=== PATIENT | male | born 1945 | race Caucasian/White ===

== ENCOUNTER → 2018-09-16 10:54 | Outpatient (CLI) | payer MEDICARE, SELFPAY ==
--- NOTE | 2018-10-01 15:05 | P.HOLT.S_ITS ---
Remote Sensing Scientist Report Referral & Results Date Patient Seen: 09/16/18 Requesting provider: Edy Santana Indication: Dizziness Duration of monitoring (days): 7 Diary information: There are no patient diary entries and no patient triggered events to correlate with symptoms Data: Minimum heart rate was 40 beats per minute at 03:03 on 09/20/2018 Maximum sinus heart rate was 141 beats per minute at 15:00 on 09/18/2018 Maximum overall heart rate was 187 beats per minute at 11:55 on 09/19/2018 associated with a 25.2nd run of SVT Patient had less than 1% of identified beats as PACs or PVCs although there were 5-7 second runs of ventricular bigeminy and ventricular trigeminy Patient had multiple episodes of a supraventricular tachycardia that the computer identified his atrial fibrillation although I am unable to confirm that. This is either supraventricular tachycardia or a true atrial tachycardia with rates into the 180s. Lungs to these episodes lasted 1 minutes 9 seconds Impression: Supraventricular dysrhythmias above. Probably not atrial fibrillation however No other significant dysrhythmias identified
== END ==
PROVIDERS: Family Provider Family Medicine; PCP Family Medicine; Visit Provider Family Medicine
DX: R42 Dizziness and giddiness (principal)
CPT/HCPCS: 0296T; 0298T

== ENCOUNTER → 2018-09-25 17:04 | Outpatient (CLI) | payer MEDICARE, SELFPAY ==
[2018-09-25 17:34] LABS: Ammonia (NH3) < 9.0 umol/L (9-30)
[2018-09-25 18:32] LABS: TSH w/ Reflex to FT4 1.41 uIU/mL (0.47-4.68)
[2018-09-25 18:53] LABS: Vitamin B12 698 pg/mL (239-931)
== END ==
PROVIDERS: Family Provider Family Medicine; PCP Family Medicine; Visit Provider Family Medicine
DX: E16.2 Hypoglycemia, unspecified (principal); K51.90 Ulcerative colitis, unspecified, without complications; R26.9 Unspecified abnormalities of gait and mobility; R41.0 Disorientation, unspecified; R47.81 Slurred speech
CPT/HCPCS: 36415; 82140; 82607; 84443

== ENCOUNTER → 2018-09-26 14:06 | Outpatient (CLI) | payer MEDICARE, SELFPAY ==
--- NOTE | 2018-09-26 14:09 | DI.ECHO.S_ITS ---
[facility] +---------+ : : [address] : : : : [id number] : : : : Phone: [phone]+ Echocardiogram Report + + :Name: BABITA REIS Study Date: 09/26/2018 Height: 70 in : :[facility] Exam Location: IS Weight: 145 lb : : Gender: Male BSA: 1.8 m2 : :: 1945 Age: 73 yrs BP: 122/60 mmHg: :Reason For Study: Confusion : :Ordering Physician: Dr. Snow : :Esther Performed By: Carmen Hooper : :Referring: ROSALINE AL : + + Interpretation Summary Technically difficult study. Normal left ventricle size with ejection fraction 55-60%. Normal right ventricle and both atria. No significant valvular abnormality. Procedure: A two-dimensional transthoracic echocardiogram with color flow and Doppler was performed. The study quality was technically difficult. There is no prior echocardiogram noted for this patient. The patient was in normal sinus rhythm during the exam. Left Ventricle: The left ventricle is normal in size. Left ventricular wall thickness is normal. The ejection fraction is estimated to be 55-60%. There are no obvious focal wall motion abnormalities noted but poor endocardial definition reduces the sensitivity for the detection of such. Right Ventricle: The right ventricle is normal in size and function. Atria: Both atria are normal in size. The interatrial septum is intact with no evidence for an atrial septal defect. Mitral Valve: The mitral valve is normal in structure and function. There is trace mitral regurgitation. Aortic Valve: The aortic valve is trileaflet. The aortic valve opens well. No aortic regurgitation is present. Tricuspid Valve: The tricuspid valve is normal in structure and function. There is a trace or physiologic amount of tricuspid regurgitation. Pulmonary artery pressures cannot be estimated because of the lack of a measurable TR jet velocity. Pulmonic Valve: The pulmonic valve is not well seen, but is grossly normal. There is a trace or physiologic amount of pulmonic regurgitation. Great Vessels: The ascending aorta could not be visualized. The IVC is of normal diameter and collapses greater than 50% with a sniff. This suggests a low right atrial pressure of 3 mm Hg. Pericardium/ Pleura There is no pericardial effusion. There is no pleural effusion. MMode/2D Measurements & Calculations LVIDd: 4.9 cm LVOT diam: 2.0 cm LVIDs: 3.5 cm Ao Arch Diam (Prox Trans): 2.6 cm FS: 27.5 % IVSd: 0.87 cm LVPWd: 0.92 cm LV garcia. diameter/BSA (cm/m^2): 2.7 LV sys. diameter/BSA (cm/m^2): 1.9 LA A2 area: 11.8 cm2 RA long axis: 7.5 cm LA A4 area: 12.9 cm2 RA area: 7.5 cm2 LA length (vol): 4.8 cm RA vol: 6.3 ml LA vol: 26.9 ml RA : 3.5 ml/m2 LA vol index: 14.8 ml/m2 TAPSE: 1.9 cm Doppler Measurements & Calculations Ao V2 max: 116.1 cm/sec LVOT Max Dimitry: 78.9 cm/sec Ao V2 mean: 86.5 cm/sec LV V1 max P.5 mmHg Ao max P.4 mmHg LV V1 VTI: 14.4 cm Ao mean P.2 mmHg LUZ MARIA(I,D): 2.0 cm2 Ao V2 VTI: 23.0 cm LUZ MARIA(V,D): 2.1 cm2 sev ratio: 0.63 LUZ MARIA indexed to BSA (cm^2/m^2): 1.1 MV E max dimitry: 55.1 cm/sec PA V2 max: 48.3 cm/sec MV A max dimitry: 48.4 cm/sec PA V2 mean: 34.9 cm/sec MV E/A: 1.1 PA mean P.52 mmHg MV dec time: 0.18 sec PA pr(Accel): 7.5 mmHg SV(LVOT): 45.6 ml Electronically signed by: Denice De La O on Reading Physician:09/26/2018 04:42 PM
--- NOTE | 2018-09-26 14:09 | DI.US.S_ITS ---
PROCEDURE: US CAROTID DOPPLER BI INDICATIONS: CONFUSION TECHNIQUE: Color and pulse Doppler interrogation was performed of both carotid systems, with image documentation and velocity measurements. COMPARISON: None. FINDINGS: Stenosis calculations are based on SRU (Society of Radiologists in Ultrasound) criteria. Right side: Brachial blood pressure: 91/57 mm Hg. Common carotid artery peak systolic velocity: 114 cm/sec. Internal carotid artery peak systolic velocity: 91 cm/sec. Internal carotid artery end diastolic velocity: 39 cm/sec. External carotid artery peak systolic velocity: 115 cm/sec. ICA/CCA peak systolic ratio: 0.8. Mesa scale imaging description: Minimal intimal thickening. Percent internal carotid artery stenosis: Less than 50%. Vertebral artery: Flow direction is antegrade. Left side: Brachial blood pressure: 101/64 mm Hg. Common carotid artery peak systolic velocity: 128 cm/sec. Internal carotid artery peak systolic velocity: 90 cm/sec. Internal carotid artery end diastolic velocity: 28 cm/sec. External carotid artery peak systolic velocity: 120 cm/sec. ICA/CCA peak systolic ratio: 0.8. Mesa scale imaging description: Minimal intimal wall thickening. Percent internal carotid artery stenosis: Less than 50%. Vertebral artery: Flow direction is antegrade. IMPRESSION: Less than 50% bilateral internal carotid artery stenosis. Dictated by: Odell Arteaga [facility] Interpreted: Crescencio Bang MD on 09/26/2018 at 15:24 Approved by: Crescencio Bang M.D. on 09/26/2018 at 22:41
== END ==
PROVIDERS: Family Provider Family Medicine; PCP Family Medicine; Visit Provider Family Medicine
DX: R41.0 Disorientation, unspecified (principal); R47.81 Slurred speech; R26.9 Unspecified abnormalities of gait and mobility; I65.23 Occlusion and stenosis of bilateral carotid arteries
CPT/HCPCS: 93306; 93880

== ENCOUNTER → 2018-09-30 13:06 | Outpatient (CLI) | payer MEDICARE, SELFPAY ==
--- NOTE | 2018-09-30 13:08 | DI.MRI.S_ITS ---
PROCEDURE: MR STROKE Pre- and post-contrast brain MRI, non-contrast brain MR angiogram, pre- and postcontrast neck MR angiogram INDICATIONS: confusion weakness, fall TECHNIQUE: Brain: Noncontrast axial T1 spin echo, axial T2 fast spin echo, sagittal and axial FLAIR, coronal T2 fast spin echo, axial gradient echo, axial diffusion and ADC through the brain. After the administration of contrast, axial 3D VIBE of the cranial vasculature and brain. Brain MRA: Non-contrast 3-D time of flight MR angiogram, with multiple nholouu-dchbiittb-ljlmvwjfce (MIP) reformats performed. Neck MRA: Axial and sagittal TruFISP through the neck. Coronal dynamic MR angiogram during administration of contrast in the arterial and venous phases, with 3-dimenstional avdymsv-nbmesfszy-yygkgrjylr (MIP) reformats constructed from subtraction images. COMPARISON: [facility], , STROKE PROTOCOL, 09/09/2014, 16:13. FINDINGS: Image quality: Excellent. BRAIN: CSF spaces: Ventricles are normal in size and shape. Basal cisterns are patent. No extra-axial fluid collections. Brain: No intracranial bleeds or mass effects. Mesa-white matter interface is normal. Diffusion weighted images show no acute ischemic insults. Brainstem appears normal. Normal intravascular flow voids are present. No abnormal intracranial enhancement. Skull and face: Calvarial marrow signal is normal. Orbits appear normal. Note is made of bilateral lens replacements. Sinuses: Minimal to mild mucosal thickening can be seen throughout the paranasal sinuses. No abnormal mass air cell fluid can be seen. BRAIN MR ANGIOGRAM: Anterior circulation: Intracranial internal carotid arteries are normal in size and enhancement. The flow within the paired anterior cerebral arteries is normal and symmetric. The flow within the middle cerebral arteries is normal and symmetric. The anterior communicating artery is seen. No stenoses, occlusions, or aneurysms. Posterior circulation: There is mild narrowing seen of the distal right vertebral artery, which is similar to November 02 and felt most likely be congenital in nature. Vertebral arteries otherwise demonstrate an unremarkable appearance. They join to form a normal appearing basilar artery. The flow within the posterior cerebral arteries is normal and symmetric. No stenoses, occlusions, or aneurysms. NECK MR ANGIOGRAM: Carotids: Great vessels demonstrate a conventional anatomy as they arise from the aortic arch. The origins of the common carotid arteries appear patent. The calibers and courses of both common carotid arteries are normal. The bifurcation regions appear normal bilaterally. The internal carotid arteries demonstrate normal course and caliber. Posterior circulation: The origins of the vertebral arteries appear patent. More superior portions of both vertebral arteries demonstrate normal course and caliber, and join to form a normal appearing basilar artery. Miscellaneous: Subclavian arteries appear patent. Pre-contrast images through the neck show no soft tissue abnormalities. IMPRESSION: BRAIN MRI: No findings of acute or subacute infarction can be seen. Note is made of age-appropriate brain parenchymal volume loss and chronic small vessel ischemic changes. BRAIN MR ANGIOGRAM: No significant intracranial arterial abnormality can be seen. NECK MR ANGIOGRAM: Within the arteries of the neck, no hemodynamically significant stenosis can be seen. Dictated by: Sherwin Goodman M.D. on 09/30/2018 at 14:34 Approved by: Sherwin Goodman M.D. on 09/30/2018 at 14:37
== END ==
PROVIDERS: PCP Family Medicine; Visit Provider Family Medicine
DX: R41.0 Disorientation, unspecified (principal); R26.9 Unspecified abnormalities of gait and mobility; R47.81 Slurred speech
CPT/HCPCS: 70548; 70553; A9579

== ENCOUNTER → 2020-08-18 07:02 | Outpatient (CLI) | payer MEDICARE, SELFPAY ==
[2020-08-18 08:13] LABS: Hematocrit 44.6 % (41-53); Hemoglobin 14.6 g/dL (13.5-17.5); Mean Corpuscular HGB Conc 32.7 % (30-36); Mean Corpuscular Hemoglobin 29.9 PG (26-34); Mean Corpuscular Volume 91.4 fL (80-100); Platelet Count 216 X10^3/uL (150-400); Red Blood Cell Count 4.88 X10^6/uL (4.5-5.9); Red Cell Distribution Width 13.4 % (11.6-14.8); White Blood Cell Count 5.4 X10^3/uL (4.5-11.0)
[2020-08-18 08:16] LABS: Alanine Aminotransferase 22 IU/L (<50); Albumin 3.7 g/dL (3.5-5.0); Albumin Globulin Ratio 1.3 (1.0-2.8); Alkaline Phosphatase 76 U/L (38-126); Aspartate Aminotransferase 32 IU/L (17-59); BUN Creatinine Ratio 26.1 (6-22); Bilirubin Total 0.6 mg/dL (0.2-1.3); Blood Urea Nitrogen 31 mg/dL (9-20); Calcium 9.7 mg/dL (8.4-10.2); Carbon Dioxide 25 mmol/L (22-32); Chloride 110 mmol/L (98-107); Cholesterol 189 mg/dL (140-199); Estimated Glomerular Filt Rate 59.3 mL/min (>60); Globulin 2.9 g/dL (1.7-4.1); Glucose 93 mg/dL (80-110); HDL Cholesterol 70 mg/dL (40-60); HEMOLYSIS < 15 (0-50); LDL Cholesterol Calculated 107 mg/dL (<100); Potassium 4.4 mmol/L (3.4-5.1); Sodium 140 mmol/L (137-145); Total Protein 6.6 g/dL (6.3-8.2); Triglycerides 62 mg/dL (35-150)
[2020-08-18 08:38] LABS: Neutrophils Absolute Manual 3078 /uL (3000-5900); RBC Morphology Normal Morphology; Total Cells Counted 100
[2020-08-18 08:46] LABS: TSH w/ Reflex to FT4 1.68 uIU/mL (0.47-4.68)
== END ==
PROVIDERS: PCP Family Medicine; Referring Provider Family Medicine; Visit Provider Family Medicine
DX: E16.2 Hypoglycemia, unspecified (principal); K51.90 Ulcerative colitis, unspecified, without complications; K75.9 Inflammatory liver disease, unspecified; E78.5 Hyperlipidemia, unspecified; R53.83 Other fatigue
CPT/HCPCS: 36415; 80053; 80061; 84443; 85025

== ENCOUNTER 2020-09-10 09:16 | Emergency (ER) | payer MEDICARE, SELFPAY ==
[2020-09-10] VITALS (10 sets, daily range): BP systolic 111–135; BP diastolic 64–78; PULSE 58–73; RESP 10–17; TEMP 36.6; O2SAT 98–100
[2020-09-10 09:59] LABS: Add Manual Diff / Slide Review NO; Basophils Absolute Auto 0 /uL (0-100); Basophils Percent Auto 0.4 % (0-2); Eosinophils Absolute Auto 0 /uL (0-450); Eosinophils Percent Auto 0.3 % (2-4); Hematocrit 40.5 % (41-53); Hemoglobin 13.7 g/dL (13.5-17.5); Lymphocytes Absolute Auto 500 /uL (1100-4500); Lymphocytes Percent Auto 5.9 % (25-40); Mean Corpuscular HGB Conc 33.8 % (30-36); Mean Corpuscular Hemoglobin 30.8 PG (26-34); Monocytes Absolute Auto 800 /uL (0-900); Monocytes Percent Auto 9.3 % (3-14); Neutrophils Absolute Auto 7400 /uL (1500-7000); Neutrophils Percent Auto 84.1 % (50-75); Platelet Count 180 X10^3/uL (150-400); Red Blood Cell Count 4.45 X10^6/uL (4.5-5.9); Red Cell Distribution Width 13.6 % (11.6-14.8); White Blood Cell Count 8.9 X10^3/uL (4.5-11.0)
[2020-09-10 10:12] LABS: INR 1.1 (0.9-1.3); Prothrombin Time 12.9 SECONDS (10.1-12.7)
[2020-09-10 10:14] LABS: PTT Partial Thromboplastin Tim 33 SECONDS (26.4-36.2)
[2020-09-10 10:17] LABS: Alanine Aminotransferase 47 IU/L (<50); Albumin 3.7 g/dL (3.5-5.0); Albumin Globulin Ratio 1.2 (1.0-2.8); Alkaline Phosphatase 109 U/L (38-126); Aspartate Aminotransferase 47 IU/L (17-59); BUN Creatinine Ratio 16.1 (6-22); Bilirubin Total 0.6 mg/dL (0.2-1.3); Blood Urea Nitrogen 31 mg/dL (9-20); Calcium 9.4 mg/dL (8.4-10.2); Carbon Dioxide 22 mmol/L (22-32); Chloride 106 mmol/L (98-107); Estimated Glomerular Filt Rate 34.1 mL/min (>60); Globulin 3.2 g/dL (1.7-4.1); Glucose 89 mg/dL (80-110); HEMOLYSIS 19 (0-50); Lipase 54 U/L (23-300); Potassium 4.2 mmol/L (3.4-5.1); Sodium 136 mmol/L (137-145); Total Protein 6.9 g/dL (6.3-8.2)
[2020-09-10] MEDS: SODIUM CHLORIDE 0.9% 1,000 ML 1000 ML IV (11:12)
[2020-09-10 11:27] LABS: Creatine Kinase 116 U/L (55-170)
[2020-09-10 11:40] LABS: NT-proBNP (BNP-Adult 18+) 231 pg/mL (<450); Troponin I < 0.012 ng/mL (0.01-0.034)
[2020-09-10 11:42] LABS: Creatine Kinase MB 3.52 ng/mL (<2.37)
--- NOTE | 2020-09-10 12:52 | ED_ITS ---
HPI - Abdominal Pain General Chief Complaint: Abdominal Pain Stated Complaint: hx of liver disease/episode lrq pain x4days Time Seen by Provider: 09/10/20 11:36 Source: patient Mode of arrival: Ambulatory Limitations: no limitations History of Present Illness HPI narrative: This is a 75-year-old male comes emergency department complaint abdominal pain on off for the past week. Patient states he was concerned about cholangitis is he has a history of primary sclerosing cirrhosis. But has never had cholangitis in the past. Patient denies any fevers or chills. He has had nausea early in the week but it has resolved. He has had pain sort of in the right mid abdomen. Patient states it is intermittent he sounded most frequently happens about 6 hours after eating. He has not had any diarrhea, no urinary sym ptoms, no black or bloody stools. He denies any new swelling in his extremities. No chest pain or shortness of breath. Patient is not on any daily medications. He did try Advil and icing the area with some improvement. Patient has had a history cataract surgery and a partial colectomy with J-pouch. Patient does not have any no allergies to medications. No tobacco, no alcohol or illicit. Related Data Home Medications Medication Instructions Recorded Confirmed CALCIUM CARBONATE (CALCI-MIX~) 500 mg PO #0 09/11/12 08/16/20 VITAMIN D (Vitamin D3) 1,000 unit PO QDAY #0 09/11/12 08/16/20 [MULTI-VITAMIN] #0 09/11/12 08/16/20 loperamide 2 mg PO PRN #0 09/11/12 08/16/20 ibuprofen 600 mg tablet 600 mg PO .QDAY tab 09/11/18 08/16/20 Previous Rx's Medication Instructions Recorded hydrocodone-acetaminophen 1 tab PO Q6H PRN #10 tab 09/10/20 tamsulosin [Flomax] 0.8 mg PO DAILY #14 cap 09/10/20 Allergies Allergy/AdvReac Type Severity Reaction Status Date / Time No Known Drug Allergies Allergy Verified 09/10/20 09:38 Review of Systems Review of Systems ROS Unobtainable: All systems reviewed & are unremarkable except as noted in HPI and below Patient History Surgical History History of cataract removal with insertion of prosthetic lens History of tonsillectomy Family History (Updated 07/28/15 @ 00:00 by Conversion Provider) Father Heart disease Mother Cancer Social History marital status: Smoking Status: Never smoker alcohol intake: former substance use type: does not use Smoking Status: Never smoker alcohol intake frequency: other Substance Use Type: does not use Exam Narrative Exam Narrative: GENERAL: Alert and oriented x three, elderly male in mild distress. HEENT: Head normocephalic, atraumatic, EOMI, pupils reactive, face symmetric, moist mucous membranes NECK: Supple, full range of motion CARDIOVASCULAR: Regular rate and rhythm without murmurs, rubs or gallops. RESPIRATORY: Breath sounds equal bilaterally, no wheezes rales or rhonchi. ABDOMEN: Soft, mild right side abdominal pain kind of mid abdomen. Patient has sort of localized pain below the right upper quadrant but above the right lower quadrant. There is no mass or hernia noted.. Normoactive bowel sounds all 4 quadrants. No guarding or rebound, rigidity, no mass : No CVA tenderness EXTREMITIES: Normal range of motion, no clubbing or edema. Neurovascularly intact NEUROLOGICAL: Cranial nerves II through XII grossly intact. Moving all extremities SKIN: Warm, dry, no petechiae, no rashes or lesions. Initial Vital Signs Initial Vital Signs: Vital Signs Temperature 98 F 09/10/20 09:35 Pulse Rate 62 09/10/20 09:35 Respiratory Rate 17 09/10/20 09:35 Blood Pressure 128/76 09/10/20 09:35 Pulse Oximetry 100 09/10/20 09:35 Course Orders Ordered: ED Orders 09/10/20 11:20 NT-proBNP (BNP-Adult 18+) Stat Troponin & CK Cardiac Panel Stat 09/10/20 13:54 CT abdomen pelvis wo con Stat Discontinued Medications Sodium Chloride (Normal Saline 0.9%) 1,000 mls @ 1,000 mls/hr IV BOLUS ONE Stop: 09/10/20 12:08 Last Infusion: 09/10/20 13:06 Dose: 0 mls/hr Documented by: Admin: 09/10/20 11:12 Dose: 1,000 mls/hr Documented by: ANCA Sodium Chloride (Normal Saline 0.9%) 1,000 mls @ 150 mls/hr IV CONT ILIANA Last Infusion: 09/10/20 17:08 Dose: 0 mls/hr Documented by: Infusion: 09/10/20 15:51 Dose: 999 mls/hr Documented by: Infusion: 09/10/20 15:11 Dose: 0 mls/hr Documented by: Admin: 09/10/20 13:21 Dose: 150 mls/hr Documented by: EKATEIRNA Tamsulosin HCl (Tamsulosin 0.4 Mg Capsule) 0.4 mg PO NOW ONE Stop: 09/10/20 15:44 Last Admin: 09/10/20 15:52 Dose: 0.4 mg Documented by: EKATERINA Consultations Consultation #1: Dr. Harris from urology. Reviewed patient's labs as well as CT findings. She recommends Flomax 4 mg 2 tablets. Increasing fluids to 2-3 L total daily spread out throughout the day. Um at this time patient can return if he is having fevers, new pain, nausea or vomiting or any new no new or concerning signs. They will contact the patient on Sunday for either a tele visit or off face to face visit for evaluation and possible intervention this week. Patient should have a repeat BMP to evaluate his creatinine on Sunday with through his primary care. Time: 17:04 Vital Signs Vital signs: Vital Signs - 8 hr 09/10/20 11:30 09/10/20 12:00 09/10/20 12:30 Pulse Rate 58 L 66 73 Respiratory Rate Blood Pressure 125/75 135/73 124/69 Pulse Oximetry 99 98 99 09/10/20 13:00 09/10/20 13:30 09/10/20 17:00 Pulse Rate 68 73 70 Respiratory Rate 14 Blood Pressure 121/70 126/69 132/78 Pulse Oximetry 100 100 99 MDM - Abdominal Pain Lab Data Attestation: I reviewed the patient's lab results. Result diagrams: 09/10/20 09:50 09/10/20 09:50 Labs: Lab Results 09/10/20 09/10/20 09/10/20 Range/Units 09:50 09:50 09:50 WBC 8.9 (4.5-11.0) X10^3/uL RBC 4.45 L (4.5-5.9) X10^6/uL Hgb 13.7 (13.5-17.5) g/dL Hct 40.5 L (41-53) % MCV 91.0 (80-100) fL MCH 30.8 (26-34) PG MCHC 33.8 (30-36) % RDW 13.6 (11.6-14.8) % Plt Count 180 (150-400) X10^3/uL Neut % (Auto) 84.1 H (50-75) % Lymph % (Auto) 5.9 L (25-40) % [place] % (Auto) 9.3 (3-14) % Eos % (Auto) 0.3 L (2-4) % Baso % (Auto) 0.4 (0-2) % Neut # (Auto) 7400 H (4797-8264) /uL Lymph # (Auto) 500 L (2446-4226) /uL [place] # (Auto) 800 (0-900) /uL Eos # (Auto) 0 (0-450) /uL Baso # (Auto) 0 (0-100) /uL PT 12.9 H (10.1-12.7) SECONDS INR 1.1 (0.9-1.3) APTT 33 (26.4-36.2) SECONDS Sodium 136 L (137-145) mmol/L Potassium 4.2 (3.4-5.1) mmol/L Chloride 106 (98-107) mmol/L Carbon Dioxide 22 (22-32) mmol/L BUN 31 H (9-20) mg/dL Creatinine 1.92 H (0.66-1.25) mg/dL Estimated GFR 34.1 L (>60) mL/min BUN/Creatinine Ratio 16.1 (6-22) Glucose 89 (80-110) mg/dL Calcium 9.4 (8.4-10.2) mg/dL Total Bilirubin 0.6 (0.2-1.3) mg/dL AST 47 (17-59) IU/L ALT 47 (<50) IU/L Alkaline Phosphatase 109 (38-126) U/L Total Creatine Kinase (55-170) U/L CK-MB (CK-2) (<2.37) ng/mL CK-MB (CK-2) Rel Index (1.5-5.0) % Troponin I (0.01-0.034) ng/mL NT-Pro-B Natriuret Pep (<450) pg/mL Total Protein 6.9 (6.3-8.2) g/dL Albumin 3.7 (3.5-5.0) g/dL Globulin 3.2 (1.7-4.1) g/dL Albumin/Globulin Ratio 1.2 (1.0-2.8) Lipase 54 (23-300) U/L 09/10/20 Range/Units 11:20 WBC (4.5-11.0) X10^3/uL RBC (4.5-5.9) X10^6/uL Hgb (13.5-17.5) g/dL Hct (41-53) % MCV (80-100) fL MCH (26-34) PG MCHC (30-36) % RDW (11.6-14.8) % Plt Count (150-400) X10^3/uL Neut % (Auto) (50-75) % Lymph % (Auto) (25-40) % [place] % (Auto) (3-14) % Eos % (Auto) (2-4) % Baso % (Auto) (0-2) % Neut # (Auto) (1070-4879) /uL Lymph # (Auto) (6054-2532) /uL [place] # (Auto) (0-900) /uL Eos # (Auto) (0-450) /uL Baso # (Auto) (0-100) /uL PT (10.1-12.7) SECONDS INR (0.9-1.3) APTT (26.4-36.2) SECONDS Sodium (137-145) mmol/L Potassium (3.4-5.1) mmol/L Chloride (98-107) mmol/L Carbon Dioxide (22-32) mmol/L BUN (9-20) mg/dL Creatinine (0.66-1.25) mg/dL Estimated GFR (>60) mL/min BUN/Creatinine Ratio (6-22) Glucose (80-110) mg/dL Calcium (8.4-10.2) mg/dL Total Bilirubin (0.2-1.3) mg/dL AST (17-59) IU/L ALT (<50) IU/L Alkaline Phosphatase (38-126) U/L Total Creatine Kinase 116 (55-170) U/L CK-MB (CK-2) 3.52 H (<2.37) ng/mL CK-MB (CK-2) Rel Index 3.0 (1.5-5.0) % Troponin I < 0.012 (0.01-0.034) ng/mL NT-Pro-B Natriuret Pep 231 (<450) pg/mL Total Protein (6.3-8.2) g/dL Albumin (3.5-5.0) g/dL Globulin (1.7-4.1) g/dL Albumin/Globulin Ratio (1.0-2.8) Lipase (23-300) U/L Point of care testing: Urine Dip Bedside Urine Glucose Negative Bedside Urine Bilirubin - Negative Bedside Urine Ketone +/- 5 Urine Specific [place] 1.030 Bedside Urine Occult Blood +/- Bedside Urine pH 6 Bedside Urine Protein + 30 Bedside Urine Urobilinogen - Negative Bedside Urine Nitrite - Negative Bedside Urine Leukocytes - Negative Esterase Imaging Data CT scan - abdomen/pelvis: Radiologist's Impression: Sathish Knowles 75 M [address] Scan ReportSigned Patient: Sathish Knowles DMR#: [id number]: 4Acct:[id number]/Sex: 75 / MDate of Service: 09/10/20Loc: EDAccession Number: [id number] Procedure: CT abdomen pelvis wo con Ordering Provider: Brea Borden D.O. PROCEDURE: CT ABDOMEN PELVIS WO CON INDICATIONS: right sided abdominal pain. TECHNIQUE: After the administration of oral contrast, 5 mm thick sections acquired from the diaphragms to the symphysis. 5 mm coronal and sagittal reformats were performed . For radiation dose reduction, the following was used: automated exposure control, adjustment of mA and/or kV according to patient size. COMPARISON: None. FINDINGS: Lower thorax: Minimal right basilar atelectasis noted. Heart size normal. No hiatal hernia. Liver: Normal in size and attenuation. No contour deformity present. Biliary system: No calcified cholelithiasis or pericholecystic inflammation. No intra or extrahepatic bile duct dilatation. Pancreas: Unremarkable without mass or inflammation evident. Spleen: Normal in size and density. Adrenals: Normal morphology and density. Reproductive system: Unremarkable as visualized. Urinary system: There is a 4 mm calculus present in the distal right ureter 1.5 cm from the ureteropelvic junction resulting in moderate right hydronephrosis and hydroureter. Additionally, there is a 6 x 8 mm calculus in the proximal left ureter resulting in mild left hydronephrosis and hydroureter.. No additional nonobstructing calculi present. Gastrointestinal system: No evidence of obstruction. There has been a a c olectomy and primary ileocolic anastomosis. Moderate fecal debris in the rectum. Peritoneal spaces: No intra- or retroperitoneal adenopathy. No free air. No free fluid. Vasculature: Atherosclerotic calcification in the abdominal aorta and iliac vasculature without evidence of aneurysm. Musculoskeletal: Normal bone mineralization. No acute fractures. Abdominal wall intact without evidence of ventral or inguinal hernias. moderate multilevel degenerative disc disease noted in the lower lumbar spine. IMPRESSION: 1. Moderate right-sided hydronephrosis and hydroureter resulting from a 4 mm distal right ureteral calculus. 1. Additional 8 mm calculus in the proximal left ureter results in only mild hydronephrosis. 3. Colectomy and moderate fecal debris in the rectum Dictated by: Jhon Palomino M.D. on 09/10/2020 at 14:39 Approved by: Jhon Palomino M.D. on 09/10/2020 at 14:50 MDM Narrative Medical decision making narrative: This is a pleasant 75-year-old male who comes to the emergency department with complaint of right side abdominal pain which has been intermittent for the past 4 days. 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 He had some oral antibiotics called in by his primary care physician and comes to the part minute as his symptoms continue. He is currently he asymptomatic or with very mild right-sided pain. He denies any other pain elsewhere in his abdomen. His labs show a bump in his creatinine to 1.9 with no major change in his BUN although he does appear clinically dry. Patient's urine does not show any signs of infective and he has a kidney stone on the right that is 4 mm and is asymptomatic with a kidney stone of 8mm on the left. Case was discussed with Urology who recommends short term follow up. Patient has some mild to moderate hydro with no signs of infection. Patient was well hydrated in the department. They recommend Flomax actually taking 2 tablets or 4.8 mg daily. They will contact the patient for likely a tele visit on Sunday. Patient was given a order to have his BMP rechecked either Sunday or Sunday. Discussed with the patient and his if he has any worsening symptoms he is asked to return for repeat evaluation. Patient and feel comfortable with this plan. He was sent a short-term prescription for [place] to the pharmacy for pain control as needed. Discharge Plan Departure Patient Disposition: Home Clinical Impression: Bilateral kidney stones, Acute kidney injury Instructions: DI for Kidney Stones Activity Restrictions/Additional Instructions: Follow up with urology. They should be calling you for a either office visit or tele visit on Sunday. Talk with your physician to have your BMP rechecked on Sunday. Call Dr. Santana's office for an outpatient lab draw or appointment. Take flomax two tablets daily until gone. You may take pain medication as prescribed, take 1-2 tabs every 6 hours as needed for pain. This medication will make you sleepy do not drive, perform hazardous activities or make any major decisions while taking it. [facility] [place] Your imaging shows kidney stones on the right as well as the left which is likely causing your acute kidney injury today. Make sure to drink plenty of fluids, the urologist recommends 2-3L daily spread out throughout the day. You may take Tylenol up to a 1000 mg every 8 hours as needed for pain. Please return to the emergency department for fevers, new or worsening chest pain, shortness of breath, abdominal or flank pain, nausea, persistent vomiting, if your urine output has decreased. Prescriptions: New tamsulosin [Flomax] 0.4 mg capsule 0.8 mg PO DAILY Qty: 14 RF: 0 hydrocodone-acetaminophen 5-325 mg tablet 1 tab PO Q6H PRN (Reason: pain) Qty: 10 RF: 0 No Action ibuprofen 600 mg tablet 600 mg PO .QDAY RF: 0 CALCIUM CARBONATE (CALCI-MIX~) 500 mg PO Qty: 0 RF: 0 VITAMIN D (Vitamin D3) 1,000 unit PO QDAY Qty: 0 RF: 0 [MULTI-VITAMIN] Qty: 0 RF: 0 loperamide 2 MG capsule 2 mg PO PRN Qty: 0 RF: 0 Referrals: Edy Santana MD [Primary Care Provider] - Shy Harris MD [Non-Staff] -
[2020-09-10] MEDS: SODIUM CHLORIDE 0.9% 1,000 ML 150 ML IV (13:21)
--- NOTE | 2020-09-10 13:54 | DI.CT.S_ITS ---
PROCEDURE: CT ABDOMEN PELVIS WO CON INDICATIONS: right sided abdominal pain. TECHNIQUE: After the administration of oral contrast, 5 mm thick sections acquired from the diaphragms to the symphysis. 5 mm coronal and sagittal reformats were performed. For radiation dose reduction, the following was used: automated exposure control, adjustment of mA and/or kV according to patient size. COMPARISON: None. FINDINGS: Lower thorax: Minimal right basilar atelectasis noted. Heart size normal. No hiatal hernia. Liver: Normal in size and attenuation. No contour deformity present. Biliary system: No calcified cholelithiasis or pericholecystic inflammation. No intra or extrahepatic bile duct dilatation. Pancreas: Unremarkable without mass or inflammation evident. Spleen: Normal in size and density. Adrenals: Normal morphology and density. Reproductive system: Unremarkable as visualized. Urinary system: There is a 4 mm calculus present in the distal right ureter 1.5 cm from the ureteropelvic junction resulting in moderate right hydronephrosis and hydroureter. Additionally, there is a 6 x 8 mm calculus in the proximal left ureter resulting in mild left hydronephrosis and hydroureter.. No additional nonobstructing calculi present. Gastrointestinal system: No evidence of obstruction. There has been a a colectomy and primary ileocolic anastomosis. Moderate fecal debris in the rectum. Peritoneal spaces: No intra- or retroperitoneal adenopathy. No free air. No free fluid. Vasculature: Atherosclerotic calcification in the abdominal aorta and iliac vasculature without evidence of aneurysm. Musculoskeletal: Normal bone mineralization. No acute fractures. Abdominal wall intact without evidence of ventral or inguinal hernias. moderate multilevel degenerative disc disease noted in the lower lumbar spine. IMPRESSION: 1. Moderate right-sided hydronephrosis and hydroureter resulting from a 4 mm distal right ureteral calculus. 1. Additional 8 mm calculus in the proximal left ureter results in only mild hydronephrosis. 3. Colectomy and moderate fecal debris in the rectum Dictated by: Jhon Palomino M.D. on 09/10/2020 at 14:39 Approved by: Jhon Palomino M.D. on 09/10/2020 at 14:50
[2020-09-10] MEDS: TAMSULOSIN 0.4 MG CAPSULE PO (15:52)
== END 2020-09-10 17:42 | disposition home or self-care (01) ==
PROVIDERS: Emergency Provider Emergency Medicine; PCP Family Medicine
DX: N20.0 Calculus of kidney (principal); N17.9 Acute kidney failure, unspecified; R10.9 Unspecified abdominal pain
CPT/HCPCS: 36415; 74176; 80053; 81003; 82550; 82553; 83690; 83880; 84484; 85025; 85610; 85730; 93005; 93010; 96360; 96361; 99284

== ENCOUNTER → 2020-09-13 09:52 | Outpatient (CLI) | payer MEDICARE, SELFPAY ==
[2020-09-13 11:17] LABS: BUN Creatinine Ratio 13.5 (6-22); Blood Urea Nitrogen 13 mg/dL (9-20); Calcium 9.2 mg/dL (8.4-10.2); Carbon Dioxide 25 mmol/L (22-32); Chloride 108 mmol/L (98-107); Estimated Glomerular Filt Rate > 60.0 mL/min (>60); Glucose 129 mg/dL (80-110); HEMOLYSIS < 15 (0-50); Potassium 4.1 mmol/L (3.4-5.1); Sodium 138 mmol/L (137-145)
== END ==
PROVIDERS: PCP Family Medicine; Referring Provider Family Medicine; Visit Provider Family Medicine
DX: N17.9 Acute kidney failure, unspecified (principal)
CPT/HCPCS: 36415; 80048

== ENCOUNTER → 2020-09-20 11:04 | Outpatient (CLI) | payer MEDICARE, SELFPAY ==
[2020-09-20 11:23] LABS: Bacteria Urine None Seen; RBC Urine None Seen (0-5/HPF); WBC Urine None Seen (0-5/HPF)
[2020-09-20 12:42] LABS: Appearance Urine UA CLEAR; Bilirubin Urine UA NEGATIVE (NEGATIVE); Color Urine UA YELLOW; Glucose Urine UA NEGATIVE (Negative); Ketones Urine UA NEGATIVE (NEGATIVE); Leukocyte Esterase Urine UA NEGATIVE (NEGATIVE); Nitrite Urine UA NEGATIVE (Negative); Occult Blood Urine UA TRACE-INTACT (Negative); Protein Urine UA NEGATIVE (Negative); Specific Gravity Urine UA <=1.005 (1.000-1.035); Urobilinogen Urine UA 0.2 E.U./dL (0.2)
[2020-09-20 13:57] LABS: Culture Indicated Urine Cult Not Indicated; Urine Comments Microscopic Normal
== END ==
PROVIDERS: PCP Family Medicine; Referring Provider Physician Assistant Surgical; Visit Provider Physician Assistant Surgical
DX: N20.1 Calculus of ureter (principal)
CPT/HCPCS: 81001

== ENCOUNTER → 2020-09-22 09:11 | Outpatient (CLI) | payer MEDICARE, SELFPAY ==
[2020-09-22 12:52] LABS: COVID19 -Nasal RAPID Negative (Negative)
== END ==
PROVIDERS: PCP Family Medicine; Visit Provider Student in an Organized Health Care Education/Training Program
DX: Z01.812 Encounter for preprocedural laboratory examination (principal); Z20.822 Contact with and (suspected) exposure to COVID-19
CPT/HCPCS: 87635; C9803

== ENCOUNTER → 2020-12-16 09:09 | Outpatient (CLI) | payer MEDICARE, SELFPAY ==
--- NOTE | 2020-12-16 | DI.US.S_ITS ---
PROCEDURE: US RENAL COMPLETE INDICATIONS: CALCULUS OF URETER TECHNIQUE: Real-time scanning was performed of the kidneys and bladder, with image documentation. COMPARISON: None. FINDINGS: Kidneys: Kidneys are normal in size. Right kidney measures 10.3 cm long; left kidney measures 9.8 cm long. Right renal cortical thickness is 1.3 cm; left renal cortical thickness is 1.5 cm. Renal cortical echotexture is normal. No hydronephrosis or nephrolithiasis. No suspicious solid mass lesions. Bladder: Pre-void bladder volume is 12 mL. Post-void residual is not obtained as the patient was unable to void. Pre-void images demonstrate no intraluminal masses or stones. On pre-void images, both of the ureteral jets are noted with color Doppler interrogation. (Of note, ureteral jets may not be detectable in up to 25% of cases due to insufficient differences in specific gravity between ureteral and bladder urine). Miscellaneous: No free pelvic fluid. IMPRESSION: No hydronephrosis. No sonographically identified urolithiasis. Dictated by: Jian Hercules M.D. on 12/16/2020 at 12:04 Approved by: Jian Hercules M.D. on 12/16/2020 at 12:05
== END ==
PROVIDERS: PCP Family Medicine; Referring Provider Urology; Visit Provider Urology
DX: N20.1 Calculus of ureter (principal)
CPT/HCPCS: 76770

== ENCOUNTER → 2023-01-12 07:00 | Outpatient (CLI) | payer MEDICARE, SELFPAY ==
[2023-01-12 08:34] LABS: Add Manual Diff / Slide Review NO; Basophils Absolute Auto 0 /uL (0-100); Basophils Percent Auto 0.7 % (0-2); Eosinophils Absolute Auto 100 /uL (0-450); Eosinophils Percent Auto 1.4 % (2-4); Hematocrit 43.5 % (41-53); Hemoglobin 14.8 g/dL (13.5-17.5); Lymphocytes Absolute Auto 1500 /uL (1100-4500); Mean Corpuscular Hemoglobin 30.7 PG (26-34); Mean Corpuscular Volume 90.3 fL (80-100); Monocytes Absolute Auto 500 /uL (0-900); Monocytes Percent Auto 8.1 % (3-14); Neutrophils Absolute Auto 3700 /uL (1500-7000); Neutrophils Percent Auto 63.8 % (50-75); Platelet Count 213 X10^3/uL (150-400); Red Blood Cell Count 4.82 X10^6/uL (4.5-5.9); Red Cell Distribution Width 13.5 % (11.6-14.8); White Blood Cell Count 5.7 X10^3/uL (4.5-11.0)
[2023-01-12 09:05] LABS: Alanine Aminotransferase 34 IU/L (<50); Albumin 3.8 g/dL (3.5-5.0); Albumin Globulin Ratio 1.4 (1.0-2.8); Alkaline Phosphatase 88 U/L (38-126); Aspartate Aminotransferase 39 IU/L (17-59); BUN Creatinine Ratio 20.8 (6-22); Bilirubin Total 0.4 mg/dL (0.2-1.3); Blood Urea Nitrogen 22 mg/dL (9-20); Calcium 9.2 mg/dL (8.4-10.2); Carbon Dioxide 23 mmol/L (22-32); Chloride 109 mmol/L (98-107); Estimated Glomerular Filt Rate > 60 mL/min (>60); Globulin 2.8 g/dL (1.7-4.1); Glucose 92 mg/dL (80-110); HEMOLYSIS < 15 (0-50); Potassium 4.5 mmol/L (3.4-5.1); Sodium 138 mmol/L (137-145); Total Protein 6.6 g/dL (6.3-8.2)
== END ==
PROVIDERS: PCP Family Medicine; Referring Provider Family Medicine; Visit Provider Family Medicine
DX: K51.90 Ulcerative colitis, unspecified, without complications (principal); K74.3 Primary biliary cirrhosis; K75.9 Inflammatory liver disease, unspecified
CPT/HCPCS: 36415; 80053; 85025

== ENCOUNTER → 2024-03-03 09:04 | Outpatient (CLI) | payer MEDICARE, SELFPAY ==
[2024-03-03 10:59] LABS: Add Manual Diff / Slide Review NO; Basophils Absolute Auto 100 /uL (0-100); Basophils Percent Auto 1.6 % (0-2); Eosinophils Absolute Auto 200 /uL (0-450); Eosinophils Percent Auto 2.7 % (2-4); Hemoglobin 15.6 g/dL (13.5-17.5); Lymphocytes Absolute Auto 1400 /uL (1100-4500); Lymphocytes Percent Auto 24.4 % (25-40); Mean Corpuscular HGB Conc 33.8 % (30-36); Mean Corpuscular Hemoglobin 30.7 PG (26-34); Mean Corpuscular Volume 90.7 fL (80-100); Monocytes Absolute Auto 500 /uL (0-900); Monocytes Percent Auto 9.7 % (3-14); Neutrophils Absolute Auto 3500 /uL (1500-7000); Neutrophils Percent Auto 61.6 % (50-75); Platelet Count 212 X10^3/uL (150-400); Red Blood Cell Count 5.07 X10^6/uL (4.5-5.9); White Blood Cell Count 5.7 X10^3/uL (4.5-11.0)
[2024-03-03 11:13] LABS: Alanine Aminotransferase 23 IU/L (<50); Albumin 3.9 g/dL (3.5-5.0); Albumin Globulin Ratio 1.5 (1.0-2.8); Alkaline Phosphatase 99 U/L (38-126); Aspartate Aminotransferase 31 IU/L (17-59); BUN Creatinine Ratio 22.8 (6-22); Bilirubin Total 0.7 mg/dL (0.2-1.3); Blood Urea Nitrogen 23 mg/dL (9-20); Calcium 9.5 mg/dL (8.4-10.2); Carbon Dioxide 21 mmol/L (22-32); Chloride 108 mmol/L (98-107); Cholesterol 219 mg/dL (140-199); Estimated Glomerular Filt Rate > 60 mL/min (>60); Globulin 2.6 g/dL (1.7-4.1); Glucose 85 mg/dL (80-110); HDL Cholesterol 86 mg/dL (40-60); HEMOLYSIS < 15 (0-50); LDL Cholesterol Calculated 115 mg/dL (<100); Potassium 4.4 mmol/L (3.4-5.1); Sodium 138 mmol/L (137-145); Total Protein 6.5 g/dL (6.3-8.2); Triglycerides 90 mg/dL (35-150)
[2024-03-03 11:37] LABS: TSH w/ Reflex to FT4 2.18 uIU/mL (0.47-4.68)
[2024-03-03 11:41] LABS: Prostate Specific Antigen Scrn 2.26 ng/mL (0.1-4.0)
== END ==
PROVIDERS: PCP Family Medicine; Referring Provider Family Medicine; Visit Provider Family Medicine
DX: K74.3 Primary biliary cirrhosis (principal); Z12.5 Encounter for screening for malignant neoplasm of prostate; K51.90 Ulcerative colitis, unspecified, without complications; K75.9 Inflammatory liver disease, unspecified; N40.0 Benign prostatic hyperplasia without lower urinary tract symptoms; I47.10 Supraventricular tachycardia, unspecified; E16.2 Hypoglycemia, unspecified; Z90.49 Acquired absence of other specified parts of digestive tract; E78.00 Pure hypercholesterolemia, unspecified
CPT/HCPCS: 36415; 80053; 80061; 84443; 85025; G0103